=== PATIENT | female | born 1930 | race Caucasian/White ===

== ENCOUNTER 2017-04-15 06:54 | Inpatient (IN) | payer MEDICARE ==
[~2017-04-15] VITALS: Ht 154.9 cm; Wt 55.0 kg
[~2017-04-15 06:54] MED LIST: ALBU8.5H4 IH; ALEN70TA19 PO; ASPI-1009 PO; FEXO-124 PO; FURO40TA4 PO; HYDR1TAB PO; LISI10TA4 PO
[2017-04-15 07:07] LABS: BASOPHILS # (AUTO) 0.1 X10'3 (0-0.2); BASOPHILS % (AUTO) 0.9 % (0-1); EOSINOPHILS # (AUTO) 0.2 X10'3 (0-0.9); EOSINOPHILS % (AUTO) 2.8 % (0-6); HEMATOCRIT 41.2 % (35.0-45.0); HEMOGLOBIN 13.6 g/dl (12.0-16.0); LYMPHOCYTES # (AUTO) 2.8 X10'3 (1.1-4.8); LYMPHOCYTES % (AUTO) 33.9 % (21-51); MEAN CORPUSCULAR HEMOGLOBIN 31.1 PG (27.0-31.0); MEAN CORPUSCULAR VOLUME 94.1 FL (78-98); MONOCYTES # (AUTO) 0.6 X10'3 (0-0.9); MONOCYTES % (AUTO) 6.8 % (2-12); NEUTROPHILS # (AUTO) 4.6 X10'3 (1.8-7.7); NEUTROPHILS % (AUTO) 55.6 % (42-75); PLATELET COUNT 240 X10'3 (140-440); RED BLOOD COUNT 4.38 X10'6 (4.20-5.60); RED CELL DISTRIBUTION WIDTH 13.8 % (11.5-14.5); WHITE BLOOD COUNT 8.2 X10'3 (4.5-11.0)
[2017-04-15 07:18] LABS: INR 1.1 INR; PARTIAL THROMBOPLASTIN TIME 24 SECONDS (22-32)
[2017-04-15 07:27] LABS: ALANINE AMINOTRANSFERASE 16 U/L (12-78); ALBUMIN 3.3 G/DL (3.4-5.0); ALBUMIN/GLOBULIN RATIO 1.1 (1.1-1.5); ALKALINE PHOSPHATASE 62 IU/L (46-116); ANION GAP 10 (8-16); ASPARTATE AMINO TRANSFERASE 14 U/L (10-37); BILIRUBIN,TOTAL 0.4 MG/DL (0.1-1.0); BLOOD UREA NITROGEN 13 MG/DL (7-18); BUN/CREATININE RATIO 21.7 (6.6-38.0); CALCIUM 8.5 MG/DL (8.5-10.1); CHLORIDE 108 MMOL/L (99-107); GLUCOSE 125 MG/DL (70-104); POTASSIUM 3.7 MMOL/L (3.5-5.1); SODIUM 140 MMOL/L (135-145); TOTAL CARBON DIOXIDE 22.1 MMOL/L (24-32); TOTAL PROTEIN 6.4 G/DL (6.4-8.2); TROPONIN I < 0.04 NG/ML (0.0-0.05); eGFR > 90 ML/MIN
[2017-04-15 08:13] LABS: CLARITY,URINE CLEAR (Clear); COLOR,URINE YELLOW (Yellow); GLUCOSE, URINE NEGATIVE (Neg); KETONES,URINE NEGATIVE (Neg); LEUKOCYTE ESTERASE ,URINE SMALL (Neg); NITRITES, URINE NEGATIVE (Neg); OCCULT BLOOD,URINE NEGATIVE (Neg); PROTEIN,URINE NEGATIVE (Neg); UROBILINOGEN,URINE 0.2 E.U/dL (0.2-1.0)
[2017-04-15 08:15] LABS: UA COLLECTION TYPE STRAIGHT CATH
[2017-04-15 08:18] LABS: SQUAMOUS EPITHELIAL CELL,UR FEW /LPF (FEW)
[2017-04-15 08:19] LABS: BACTERIA,URINE 1+ /HPF (Neg); RBC,URINE 0-2 /HPF (0-2); WBC,URINE 0-4 /HPF (0-4)
[2017-04-15] MEDS ORDERED: normal saline 1000ML IV soln IVB ONE (09:30)
[2017-04-15] MEDS: normal saline 1000ml 1,000 ML IV SCH (09:49)
[2017-04-15] MEDS ORDERED: HYDROcodone/acetaminophen 5mg/325mg tablet PO PRN (09:50)
[2017-04-15] MEDS ORDERED: mag hydrox/Alum hydrox/simeth 30ml oral suspension PO PRN (09:50)
[2017-04-15] MEDS ORDERED: HYDROcodone/acetaminophen 10/325mg tab PO PRN (09:50)
[2017-04-15] MEDS ORDERED: potassium Cl 40MEQ/NS 500ml 500 ML IV PRN ×2 (09:50)
[2017-04-15] MEDS ORDERED: ondansetron/PF 4mg/2ml inj IV PRN (09:50)
[2017-04-15] MEDS ORDERED: potassium Cl 20 mEq SR tablet PO PRN ×2 (09:50)
[2017-04-15] MEDS ORDERED: magnesium 2GM in 50ml NS 50 ML IV PRN (09:50)
[2017-04-15] MEDS ORDERED: magnesium Cl slow-release 64mg tablet PO PRN (09:50)
[2017-04-15] MEDS ORDERED: acetaminophen 325mg tablet PO PRN (09:50)
[2017-04-15] MEDS ORDERED: magnesium 4gm in 100ml NS 100 ML IV PRN (09:50)
[2017-04-15] MEDS ORDERED: magnesium hydroxide 30ml (MOM) UD suspension PO PRN (09:50)
[2017-04-15] MEDS ORDERED: albuterol 2.5 MG/3 ML nebule NEB PRN (10:00)
[2017-04-15] MEDS ORDERED: POLY17PO10 PO (10:50)
[2017-04-15 11:09] VITALS: BP 139/72
[2017-04-15 14:00] VITALS: BP 132/69
[2017-04-15] MEDS: heparin, porcine 5000 units/ml vial SQ SCH (20:00)
[2017-04-15] MEDS ORDERED: temazepam 15mg capsule PO PRN (21:00)
[2017-04-15 22:00] VITALS: BP 124/67
[2017-04-16] VITALS (7 sets, daily range): BP systolic 120–157; BP diastolic 60–96
[2017-04-16] MEDS: normal saline 1000ml 1,000 ML IV SCH (04:07)
[2017-04-16] MEDS: lisinopril 5mg tablet PO SCH (07:04)
[2017-04-16] MEDS: pantoprazole 40mg Tablet.DR PO SCH (07:05)
[2017-04-16] MEDS: aspirin 81mg tablet.DR PO SCH (07:05)
[2017-04-16] MEDS: heparin, porcine 5000 units/ml vial SQ SCH ×2 (07:05→19:03)
[2017-04-16 07:32] LABS: BASOPHILS # (AUTO) 0.1 X10'3 (0-0.2); BASOPHILS % (AUTO) 0.8 % (0-1); EOSINOPHILS # (AUTO) 0.1 X10'3 (0-0.9); EOSINOPHILS % (AUTO) 1.2 % (0-6); HEMATOCRIT 36.9 % (35.0-45.0); HEMOGLOBIN 13.1 g/dl (12.0-16.0); LYMPHOCYTES % (AUTO) 25.7 % (21-51); MEAN CORPUSCULAR HEMOGLOBIN 32.4 PG (27.0-31.0); MEAN CORPUSCULAR HGB CONC 35.5 % (33.0-36.5); MEAN CORPUSCULAR VOLUME 91.4 FL (78-98); MEAN PLATELET VOLUME 8.1 FL (7.4-10.4); MONOCYTES # (AUTO) 0.5 X10'3 (0-0.9); MONOCYTES % (AUTO) 6.5 % (2-12); NEUTROPHILS # (AUTO) 5.1 X10'3 (1.8-7.7); NEUTROPHILS % (AUTO) 65.8 % (42-75); PLATELET COUNT 202 X10'3 (140-440); RED BLOOD COUNT 4.03 X10'6 (4.20-5.60); WHITE BLOOD COUNT 7.8 X10'3 (4.5-11.0)
[2017-04-16 07:49] LABS: ALANINE AMINOTRANSFERASE 15 U/L (12-78); ALKALINE PHOSPHATASE 53 IU/L (46-116); ANION GAP 12 (8-16); ASPARTATE AMINO TRANSFERASE 14 U/L (10-37); BILIRUBIN,TOTAL 0.5 MG/DL (0.1-1.0); BLOOD UREA NITROGEN 9 MG/DL (7-18); CALCIUM 8.3 MG/DL (8.5-10.1); CHLORIDE 111 MMOL/L (99-107); GLUCOSE 92 MG/DL (70-104); MAGNESIUM 1.8 MG/DL (1.5-2.4); POTASSIUM 3.7 MMOL/L (3.5-5.1); SODIUM 144 MMOL/L (135-145); TOTAL CARBON DIOXIDE 21.4 MMOL/L (24-32); TOTAL PROTEIN 6.1 G/DL (6.4-8.2); eGFR > 90 ML/MIN
[2017-04-16] MEDS: K and/or MAG REPLACEMENT MC SCH (08:00)
[2017-04-16 09:58] LABS: CHOL/HDL RATIO 3.5 (0.00-4.99); CHOLESTEROL 152 MG/DL (0-200); HDL CHOLESTEROL 43 MG/DL (35-60); LDL CHOLESTEROL 105 MG/DL (50-100); TRIGLYCERIDES 63 MG/DL (20-135)
[2017-04-16] MEDS: acetaminophen 325mg tablet PO PRN (10:34)
[2017-04-16] MEDS: Protein Shake (high protein) 240ml (8oz) cup PO SCH ×2 (13:00→18:52)
[2017-04-17] VITALS (9 sets, daily range): BP systolic 116–155; BP diastolic 56–88
[2017-04-17] MEDS: normal saline 1000ml 1,000 ML IV SCH ×2 (01:49→21:49)
[2017-04-17 06:32] LABS: BASOPHILS # (AUTO) 0.1 X10'3 (0-0.2); BASOPHILS % (AUTO) 0.6 % (0-1); EOSINOPHILS # (AUTO) 0.2 X10'3 (0-0.9); EOSINOPHILS % (AUTO) 1.5 % (0-6); HEMATOCRIT 40.9 % (35.0-45.0); HEMOGLOBIN 13.5 g/dl (12.0-16.0); LYMPHOCYTES # (AUTO) 1.9 X10'3 (1.1-4.8); LYMPHOCYTES % (AUTO) 17.1 % (21-51); MEAN CORPUSCULAR HEMOGLOBIN 30.8 PG (27.0-31.0); MEAN CORPUSCULAR HGB CONC 33.1 % (33.0-36.5); MEAN CORPUSCULAR VOLUME 93.3 FL (78-98); MONOCYTES # (AUTO) 0.6 X10'3 (0-0.9); MONOCYTES % (AUTO) 5.4 % (2-12); NEUTROPHILS # (AUTO) 8.2 X10'3 (1.8-7.7); NEUTROPHILS % (AUTO) 75.4 % (42-75); PLATELET COUNT 212 X10'3 (140-440); RED BLOOD COUNT 4.38 X10'6 (4.20-5.60); RED CELL DISTRIBUTION WIDTH 13.9 % (11.5-14.5); WHITE BLOOD COUNT 10.9 X10'3 (4.5-11.0)
[2017-04-17 06:47] LABS: ALANINE AMINOTRANSFERASE 14 U/L (12-78); ALBUMIN 3.2 G/DL (3.4-5.0); ALKALINE PHOSPHATASE 57 IU/L (46-116); ANION GAP 11 (8-16); ASPARTATE AMINO TRANSFERASE 16 U/L (10-37); BILIRUBIN,TOTAL 0.4 MG/DL (0.1-1.0); BLOOD UREA NITROGEN 11 MG/DL (7-18); BUN/CREATININE RATIO 18.3 (6.6-38.0); CALCIUM 8.6 MG/DL (8.5-10.1); CHLORIDE 107 MMOL/L (99-107); GLUCOSE 100 MG/DL (70-104); MAGNESIUM 1.8 MG/DL (1.5-2.4); POTASSIUM 3.6 MMOL/L (3.5-5.1); SODIUM 141 MMOL/L (135-145); TOTAL CARBON DIOXIDE 22.6 MMOL/L (24-32); TOTAL PROTEIN 6.5 G/DL (6.4-8.2); eGFR > 90 ML/MIN
[2017-04-17] MEDS: K and/or MAG REPLACEMENT MC SCH (07:45)
[2017-04-17] MEDS: lisinopril 5mg tablet PO SCH (07:48)
[2017-04-17] MEDS: aspirin 81mg tablet.DR PO SCH (07:48)
[2017-04-17] MEDS: pantoprazole 40mg Tablet.DR PO SCH (07:49)
[2017-04-17] MEDS: heparin, porcine 5000 units/ml vial SQ SCH ×2 (07:49→20:48)
[2017-04-17] MEDS: acetaminophen 325mg tablet PO PRN ×2 (07:56→17:12)
[2017-04-17] MEDS: Protein Shake (high protein) 240ml (8oz) cup PO SCH ×3 (08:18→18:00)
[2017-04-18 06:00] VITALS: BP 129/77
[2017-04-18 07:11] LABS: BASOPHILS # (AUTO) 0.1 X10'3 (0-0.2); BASOPHILS % (AUTO) 1.2 % (0-1); EOSINOPHILS # (AUTO) 0.2 X10'3 (0-0.9); HEMATOCRIT 41.1 % (35.0-45.0); HEMOGLOBIN 13.7 g/dl (12.0-16.0); LYMPHOCYTES # (AUTO) 2.6 X10'3 (1.1-4.8); LYMPHOCYTES % (AUTO) 27.4 % (21-51); MEAN CORPUSCULAR HEMOGLOBIN 31.3 PG (27.0-31.0); MEAN CORPUSCULAR HGB CONC 33.3 % (33.0-36.5); MEAN CORPUSCULAR VOLUME 93.9 FL (78-98); MEAN PLATELET VOLUME 7.5 FL (7.4-10.4); MONOCYTES # (AUTO) 0.6 X10'3 (0-0.9); MONOCYTES % (AUTO) 6.9 % (2-12); NEUTROPHILS # (AUTO) 5.8 X10'3 (1.8-7.7); NEUTROPHILS % (AUTO) 62.5 % (42-75); PLATELET COUNT 224 X10'3 (140-440); RED BLOOD COUNT 4.37 X10'6 (4.20-5.60); RED CELL DISTRIBUTION WIDTH 13.9 % (11.5-14.5); WHITE BLOOD COUNT 9.4 X10'3 (4.5-11.0)
[2017-04-18 07:22] LABS: ALANINE AMINOTRANSFERASE 14 U/L (12-78); ALBUMIN 3.2 G/DL (3.4-5.0); ALBUMIN/GLOBULIN RATIO 0.9 (1.1-1.5); ALKALINE PHOSPHATASE 59 IU/L (46-116); ANION GAP 9 (8-16); ASPARTATE AMINO TRANSFERASE 23 U/L (10-37); BILIRUBIN,TOTAL 0.3 MG/DL (0.1-1.0); BLOOD UREA NITROGEN 16 MG/DL (7-18); BUN/CREATININE RATIO 22.9 (6.6-38.0); CALCIUM 8.7 MG/DL (8.5-10.1); CHLORIDE 106 MMOL/L (99-107); GLUCOSE 106 MG/DL (70-104); MAGNESIUM 1.6 MG/DL (1.5-2.4); POTASSIUM 3.9 MMOL/L (3.5-5.1); SODIUM 140 MMOL/L (135-145); TOTAL CARBON DIOXIDE 24.8 MMOL/L (24-32); TOTAL PROTEIN 6.7 G/DL (6.4-8.2); eGFR 79 ML/MIN
[2017-04-18] MEDS: aspirin 81mg tablet.DR PO SCH (07:22)
[2017-04-18] MEDS: lisinopril 5mg tablet PO SCH (07:22)
[2017-04-18] MEDS: pantoprazole 40mg Tablet.DR PO SCH (07:22)
[2017-04-18] MEDS: heparin, porcine 5000 units/ml vial SQ SCH (07:23)
[2017-04-18] MEDS: K and/or MAG REPLACEMENT MC SCH (08:00)
[2017-04-18] MEDS: Protein Shake (high protein) 240ml (8oz) cup PO SCH (08:00)
== END 2017-04-18 12:58 | DRG 69 ==
LOC: ER 06:54 → ORTHO 4S 09:49
PROVIDERS: ADMIT Internal Medicine; ATTEND Internal Medicine
DX: G45.9 Transient cerebral ischemic attack, unspecified (principal); I11.0 Hypertensive heart disease with heart failure; F03.90 Unspecified dementia, unspecified severity, without behavioral disturbance, psychotic disturbance, mood disturbance, and anxiety; I50.9 Heart failure, unspecified; I25.10 Atherosclerotic heart disease of native coronary artery without angina pectoris; J44.9 Chronic obstructive pulmonary disease, unspecified; R41.82 Altered mental status, unspecified; R47.81 Slurred speech; W01.0XXA Fall on same level from slipping, tripping and stumbling without subsequent striking against object, initial encounter; Z90.710 Acquired absence of both cervix and uterus; Z79.899 Other long term (current) drug therapy; Z79.82 Long term (current) use of aspirin; Z86.73 Personal history of transient ischemic attack (TIA), and cerebral infarction without residual deficits; Y93.89 Activity, other specified; Y92.89 Other specified places as the place of occurrence of the external cause; Y99.8 Other external cause status
CPT/HCPCS: 36415; 70450; 70551; 71045; 73560; 80053; 80061; 81001; 82948; 83735; 84484; 85025; 85610; 85730; 87070; 87077; 87088; 87186; 93005; 93306; 93880; 94640; 97116; 97162; 97530; 99291; J1644; J7030